=== PATIENT | male | born 1990 | race African-American/Black ===

== ENCOUNTER 2016-08-20 07:57 | Emergency (ER) | payer OTHER ==
[~2016-08-20] VITALS: Ht 185.4 cm; Wt 92.5 kg
[~2016-08-20 07:57] MED LIST: ACET500C5 PO; HYDR-3498 PO; ONDA4TAB35 PO
[2016-08-20 07:59] VITALS: Ht 185.4 cm; Wt 92.5 kg
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
== END 2016-08-20 14:00 | disposition left against medical advice (07) ==
LOC: FTE 07:57
DX: Z48.02 Encounter for removal of sutures (principal); F17.210 Nicotine dependence, cigarettes, uncomplicated
CPT/HCPCS: 99281

== ENCOUNTER 2018-04-17 12:00 | Emergency (ER) | END 2018-04-17 14:20 | disposition home or self-care (01) ==